=== PATIENT | male | born 1960 | race Caucasian/White ===

== ENCOUNTER 2018-03-03 09:53 | Emergency (ER) | payer MEDICAID ==
--- NOTE | 2018-03-03 10:05 | ED Physician Documentation ---
General Adult - HISTORIAN Historian: patient - HPI Stated Complaint: low back pain and hematuria yesterday (none today) Chief Complaint: Low Back Pain/ Injury Onset: other (chronic low back pain. Does report blood in urine yesterday but not today. ) Timing: better Severity: mild Further Comments: yes (He states he has had low back pain "forever" and states he has not been "feeling good" and he notes that he has an appt with his PCP Wed. He did notice some blood in his urine yesterday (he has a history of prostate issues and he stopped taking his meds) He states his low back pain is increased with lifting and bending side to side. No new injury and pain is normal. Denies any loss of control of bowel or bladder .) Last known Well Code/Unknown Code: Unknown - ROS CONST: no problems EYES/ENT: none CVS/RESP: none GI/: denies: abdominal pain, problems urinating, vomiting, nausea, diarrhea MS/SKIN/LYMPH: denies: rash NEURO/PSYCH: denies: headache, dizziness - PAST HX Past History: other (prostate ) Other History: none Surgeries/Procedures: cholecystectomy Allergies/Adverse Reactions: Allergies Allergy/AdvReac Type Severity Reaction Status Date / Time No Known Allergies Allergy Unverified 03/03/18 10:08 Home Medications: Ambulatory Orders Medication Instructions Recorded Atorvastatin Calcium [Lipitor] mg PO HS 03/03/18 Bupropion HBr [Aplenzin] mg PO 03/03/18 Carvedilol [Coreg] mg PO BS 03/03/18 Dicyclomine HCl [Bentyl] mg PO 03/03/18 Methocarbamol [Robaxin] mg PO 03/03/18 - SOCIAL HX Smoking History: non-smoker Alcohol Use: none Drug Use: none - FAMILY HX Family History: No - REVIEWED ASSESSMENTS Nursing Assessment Reviewed: Yes Vitals Reviewed: Yes General Adult Physical Exam - PHYSICAL EXAM GENERAL APPEARANCE: no distress EENT: eye inspection normal NECK: normal inspection RESPIRATORY: no resp distress, chest non-tender, breath sounds normal CVS: reg rate & rhythm, heart sounds normal, equal pulses, no murmur ABDOMEN: soft, no organomegaly, normal bowel sounds. No: guarding BACK: normal inspection, other (pain with palpation over right lumbar spine. ) SKIN: warm/dry, normal color EXTREMITIES: non-tender, normal range of motion, no evidence of injury, no edema NEURO: oriented X3, CN's nml as tested, motor nml, sensation nml, mood/affect nml, cognition normal Discharge Clincal Impression: Low back pain Qualifiers: Chronicity: chronic Back pain laterality: left Sciatica presence: without sciatica Qualified Code(s): M54.5 - Low back pain; G89.29 - Other chronic pain; G89.29 - Other chronic pain Referrals: Primary Doctor,No [Primary Care Provider] - 2 Days Comments: 1. Tylenol or ibuprofen for pain as directed 2. Follow up with PCP as planned 3. Return to ER if any concerns 4. Ice/Heat 5. Back stretches Condition: Stable Disposition: 01 HOME, SELF-CARE Decision to Admit: NO Date of Decison to Admit: 03/03/18 Decision Time: 10:24
[2018-03-03 10:12] VITALS: BP 111/53
[2018-03-03] MEDS ORDERED: KETOROLAC TROMETHAMINE 60 MG/2 ML VIAL IM ONE (10:14)
[2018-03-03] MEDS ORDERED: methylPREDNISolone ACETATE 80 MG/ML VIAL IM ONE (10:15)
[2018-03-04 07:19] LABS: APPEARANCE,URINE CLEAR (CLEAR); COLOR,URINE YELLOW (YELLOW); OCCULT BLOOD,URINE NEGATIVE (NEGATIVE); PH URINE 5.5 (5.0 - 8.0)
[2018-03-04 07:20] LABS: UROBILINOGEN URINE 0.2 Eu (0.2-1.0)
== END 2018-03-03 10:30 | disposition home or self-care (01) ==
LOC: ED 09:53
DX: M54.5 Low back pain (principal); G89.29 Other chronic pain
CPT/HCPCS: 81002; 96372; J1040; J1885

== ENCOUNTER 2018-03-05 10:23 | Emergency (ER) | payer MEDICAID ==
--- NOTE | 2018-03-05 10:29 | ED Physician Documentation ---
General Adult - HISTORIAN Historian: patient - HPI Stated Complaint: low back pain Chief Complaint: Low Back Pain/ Injury Onset: other (on going ) Timing: still present Severity: mild Further Comments: yes (continued low back pain. He has chronic low back pain and he has a follow up with his PCP Wed. He states he did have some relief from his injection when he was seen two days ago in the ER . He has muscle relaxants at home and he is not taking those meds due to drowsiness. He also notes some diarrhea and abdominal cramps over night (resolved now) he has a history of IBS - he has medication for this at home although he has not tried any meds. He denies any new injury. He has no loss of control of bowel or bladder) Last known Well Code/Unknown Code: Unknown - ROS CONST: no problems GI/: abdominal pain (cramps - history of IBS (resolved) ) MS/SKIN/LYMPH: denies: rash - PAST HX Past History: other (siatica , IBS , fibromyalgia ) Surgeries/Procedures: other Immunizations: UTD Allergies/Adverse Reactions: Allergies Allergy/AdvReac Type Severity Reaction Status Date / Time No Known Allergies Allergy Verified 03/05/18 10:44 Home Medications: Ambulatory Orders Medication Instructions Recorded Atorvastatin Calcium [Lipitor] 20 mg PO HS 03/03/18 Bupropion HBr [Aplenzin] 150 mg PO DAILY 03/03/18 Carvedilol [Coreg] 12.5 mg PO BID 03/03/18 Dicyclomine HCl [Bentyl] 20 mg PO TID 03/03/18 Methocarbamol [Robaxin] 750 mg PO TID PRN 03/03/18 Losartan/Hydrochlorothiazide 1 each PO DAILY 03/05/18 [Hyzaar 100-25 Tablet] Trazodone HCl [Desyrel] 100 mg PO HS 03/05/18 - SOCIAL HX Smoking History: non-smoker Alcohol Use: none Drug Use: none - FAMILY HX Family History: No - VITAL SIGNS Vital Signs: Vital Signs Temp Pulse Resp BP Pulse Ox 111/53 03/03/18 10:30 - REVIEWED ASSESSMENTS Nursing Assessment Reviewed: Yes Vitals Reviewed: Yes Progress - Progress Progress: 1050: discussed options . He could have a xray - he states he has recently had an xray. Discussed the robaxin and to try 1/2 a tab and he could try full when he can sleep. Back exercises. Also encourage him to take his meds for IBS. DG General Adult Physical Exam - PHYSICAL EXAM GENERAL APPEARANCE: no distress EENT: eye inspection normal NECK: normal inspection RESPIRATORY: no resp distress, chest non-tender, breath sounds normal CVS: reg rate & rhythm, heart sounds normal, equal pulses, no murmur ABDOMEN: soft, no organomegaly, normal bowel sounds, no distension BACK: normal inspection, other (right lateral bending and palpation to right lower back (muscle tenderness) ) SKIN: warm/dry, normal color EXTREMITIES: non-tender, normal range of motion, no evidence of injury, no edema NEURO: oriented X3, CN's nml as tested, motor nml, sensation nml, mood/affect nml, cognition normal Discharge Clincal Impression: Low back pain Qualifiers: Chronicity: chronic Back pain laterality: right Sciatica presence: with sciatica Sciatica laterality: sciatica of right side Qualified Code(s): M54.41 - Lumbago with sciatica, right side Referrals: Primary Doctor,No [Primary Care Provider] - 2 Days Additional Instructions: 1. Take meds as prescribed 2. Keep follow up with PCP on Monday 3. Ice/Heat 4. Medrol dose pack 5. Tylenol or ibuprofen as needed 6. Return to ER for increasing pain or loss of control of bowel or bladder Condition: Stable Disposition: 01 HOME, SELF-CARE Decision to Admit: NO Date of Decison to Admit: 03/05/18 Decision Time: 10:56
[2018-03-05 10:58] VITALS: BP 138/60
== END 2018-03-05 11:05 | disposition home or self-care (01) ==
LOC: ED 10:23
DX: M54.41 Lumbago with sciatica, right side (principal)